=== PATIENT | male | born 2005 | race Caucasian/White ===

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

== ENCOUNTER 2024-02-24 16:04 | Emergency (ER) | payer BC, SELFPAY ==
[2024-02-24 16:05] VITALS: BP 123/79; PULSE 99; RESP 19; TEMP 36.4; O2SAT 100; BMI 20.2
== END 2024-02-24 17:35 | disposition left against medical advice (07) ==
LOC: ED 17:38
PROVIDERS: PCP Pediatrics
DX: Z53.21 Procedure and treatment not carried out due to patient leaving prior to being seen by health care provider (principal)